=== PATIENT | male | born 1985 | race Two or more races ===

== ENCOUNTER 2021-09-10 09:10 | Emergency (ER) | payer MEDICAID ==
[~2021-09-10] VITALS: Ht 170.2 cm; Wt 70.5 kg
[2021-09-10] MEDS ORDERED: IBUPROFEN 600 MG TABLET PO ONE (10:30)
[2021-09-10 11:49] VITALS: BP 122/71
== END 2021-09-10 11:51 | disposition home or self-care (01) ==
LOC: EMS 09:16
DX: S03.42XA Sprain of jaw, left side, initial encounter (principal); Y04.0XXA Assault by unarmed brawl or fight, initial encounter; Y93.89 Activity, other specified; Y92.89 Other specified places as the place of occurrence of the external cause; Y99.8 Other external cause status
CPT/HCPCS: 70110; 99283

== ENCOUNTER 2023-05-02 14:02 | Emergency (ER) | payer MEDICAID, OTHER ==
[~2023-05-02] VITALS: Ht 167.6 cm; Wt 75.0 kg
[2023-05-02] MEDS ORDERED: PERTUSS(ACELL),DIPH,TET VAC/PF 0.5 ML SYRINGE IM. ONE (14:30)
[2023-05-02] MEDS ORDERED: BACITRACIN 0.9 GM PACKET OINTMENT TP ONE (14:30)
[2023-05-02] MEDS ORDERED: LIDOCAINE 1% 10 ML VIAL SQ ONE (14:30)
[2023-05-02] MEDS ORDERED: POVIDONE-IODINE 10% 120 ML SOLUTION TP ONE (17:45)
[2023-05-02] MEDS ORDERED: IBUP-1554 PO (19:54)
[2023-05-02] MEDS ORDERED: CEPH-558 PO (19:54)
[2023-05-02] MEDS ORDERED: ACET-2080 PO (19:54)
[2023-05-02 20:19] VITALS: BP 127/76; PULSE 75; RESP 16; TEMP 97.3
== END 2023-05-02 20:19 | disposition home or self-care (01) ==
LOC: EMS 14:29
DX: S91.011A Laceration without foreign body, right ankle, initial encounter (principal); S90.01XA Contusion of right ankle, initial encounter; S80.812A Abrasion, left lower leg, initial encounter; W54.0XXA Bitten by dog, initial encounter; Y93.89 Activity, other specified; Y92.89 Other specified places as the place of occurrence of the external cause; Y99.8 Other external cause status
CPT/HCPCS: 99283; 73610; 90715; 90471; 12001; J3490

== ENCOUNTER 2023-05-26 01:06 | Emergency (ER) | payer OTHER ==
[~2023-05-26] VITALS: Ht 167.6 cm; Wt 72.7 kg
[~2023-05-26 01:06] MED LIST: ACET-2080 PO; CEPH-558 PO; IBUP-1554 PO
[2023-05-26 01:10] VITALS: BP 135/72; PULSE 68; RESP 16; TEMP 98.9
== END 2023-05-26 03:30 | disposition left against medical advice (07) ==
LOC: EMS 01:07
DX: M79.645 Pain in left finger(s) (principal); Z53.21 Procedure and treatment not carried out due to patient leaving prior to being seen by health care provider
CPT/HCPCS: 99281; Z7502

== ENCOUNTER 2023-05-26 16:11 | Emergency (ER) | payer OTHER ==
[~2023-05-26] VITALS: Ht 167.6 cm; Wt 72.7 kg
[2023-05-26 16:57] VITALS: TEMP 98.3
[2023-05-26 17:22] VITALS: BP 120/81; PULSE 65; RESP 16
== END 2023-05-26 17:26 | disposition home or self-care (01) ==
LOC: EMS 16:21
DX: L03.012 Cellulitis of left finger (principal)
CPT/HCPCS: 99281; Z7502

== ENCOUNTER 2025-07-14 09:46 | Emergency (ER) | payer OTHER ==
[~2025-07-14] VITALS: Ht 167.6 cm; Wt 75.0 kg
[2025-07-14 09:48] VITALS: TEMP 98.2
[2025-07-14] MEDS ORDERED: LEVO137T24 PO (09:48)
[2025-07-14] MEDS ORDERED: CLOT15CR5 TP (11:11)
[2025-07-14 11:18] VITALS: BP 122/66; PULSE 76; RESP 16; O2SAT 99
== END 2025-07-14 11:18 | disposition home or self-care (01) ==
LOC: EMS 09:47
DX: S62.304A Unspecified fracture of fourth metacarpal bone, right hand, initial encounter for closed fracture (principal); L30.9 Dermatitis, unspecified; Z85.850 Personal history of malignant neoplasm of thyroid; W22.8XXA Striking against or struck by other objects, initial encounter; Y93.71 Activity, boxing; Y92.89 Other specified places as the place of occurrence of the external cause; Y99.8 Other external cause status
CPT/HCPCS: 99283